=== PATIENT | male | born 1965 | race Two or more races ===

== ENCOUNTER 2019-07-23 12:04 | Emergency (ER) | payer SELFPAY | END 2019-07-23 14:00 | disposition home or self-care (01) | LOC: JER 12:04 ==

== ENCOUNTER 2019-11-12 15:09 | Emergency (ER) | payer OTHER ==
[2019-11-12 15:26] VITALS: TEMP 98.1; BMI 25.8
[2019-11-12] MEDS ORDERED: LIDOCAINE 5% TOPICAL PATCH TP ONE (15:59)
[2019-11-12] MEDS ORDERED: IBUPROFEN 400 MG TABLET (FP) PO ONE ×2 (15:59→16:16)
--- NOTE | 2019-11-12 16:05 | PDOC ---
History of Present Illness - General Chief Complaint: Pain Stated Complaint: LEG PAIN Time Seen by Provider: 11/12/19 15:43 History Source: Patient Exam Limitations: No Limitations - History of Present Illness Initial Comments: Femi Hernandez is a 50 yo M w a hx of ETOH abuse, HTN, HLD, and chronic LLE pain who presents to the [facility] with left leg pain. He was seen in this er for the same pain 2 days prior. The patient states his leg pain is between his knee and his ankle. He rates the pain as 6/10. he describes the pain as a sharp sensation but sometimes says it feels like it sewell. The pain has been present for years but it occasionally acts up and the pain becomes intolerable. When he was seen in this ER 2 days prior we called up [facility] and they said that he has been seen in their ER for chronic left leg pain on multiple occasions. The pain is not associated with any fevers, chills, nausea, vomiting, diarrhea or constipation. PCP: None PSH: Left leg surgery Allergies: NKA, NKDA Social Hx: Lives in a long-term. ETOH abuse, denies smoking, or other illicit drug usage Past History - Past Medical History Allergies/Adverse Reactions: Allergies Allergy/AdvReac Type Severity Reaction Status Date / Time No Known Allergies Allergy Verified 11/12/19 15:19 Home Medications: Ambulatory Orders NK [No Known Home Medication] 11/10/19 COPD: No - Immunization History Immunization Up to Date: Yes - Psycho Social/Smoking Cessation Hx Smoking History: Current some day smoker Have you smoked in the past 12 months: No Number of Cigarettes Smoked Daily: 1 Information on smoking cessation initiated: No Hx Alcohol Use: Yes Drug/Substance Use Hx: No Review of Systems - Review of Systems Able to Perform ROS?: Yes Comments:: CONSTITUTIONAL: Absent: fever, no chills, no fatigue EYES: Absent: visual changes ENT: Absent: ear pain, no sore throat CARDIOVASCULAR: Absent: chest pain, no palpitations RESPIRATORY: Absent: cough, no SOB GI: Absent: abdominal pain, no nausea, no vomiting, no constipation, no diarrhea GENITOURINARY: Absent: dysuria, no frequency, no hematuria MUSKULOSKELETAL: Present: Arthralgia Absent: back pain, no myalgia SKIN: Absent: rash NEURO: Absent: headache *Physical Exam - Vital Signs Last Vital Signs Temp Pulse Resp BP Pulse Ox 98.1 F 87 18 127/69 100 11/12/19 15:10 11/12/19 15:10 11/12/19 15:10 11/12/19 15:10 11/12/19 15:10 - Physical Exam GENERAL: Sluggish appearing. No apparent distress. HEENT: Normocephalic, atraumatic. PERRL, EOM intact. CARDIOVASCULAR: Normal S1, S2. Regular rate and rhythm. PULMONARY: No evidence of respiratory distress. Lungs clear to auscultation bilaterally. No wheezing, rales or rhonchi. ABDOMEN: Soft, non-distended, non-tender. EXTREMITIES: Normal ROM in all four extremities. No gross deformities. SKIN: Left leg surgical scar. No erythema, point tenderness, no calf pain. Warm, dry. NEUROLOGICAL: No focal neurological deficits. ED Treatment Course - RADIOLOGY Radiology Studies Ordered: Category Date Time Status FEMUR-LEFT [RAD] Stat Radiology 11/12/19 16:00 Ordered HIP & PELVIS-LEFT [RAD] Stat Radiology 11/12/19 15:59 Ordered KNEE 3 POS-LEFT [RAD] Stat Radiology 11/12/19 16:01 Ordered SPINE-LUMBAR SACRAL [RAD] Stat Radiology 11/12/19 16:00 Ordered Medical Decision Making - Medical Decision Making Femi Hernandez is a 50 yo M w a hx of ETOH abuse, HTN, HLD, and chronic LLE pain who presents to the [facility] with left leg pain. He was seen in this er for the same pain 2 days prior. The patient states his leg pain is between his knee and his ankle. He rates the pain as 6/10. he describes the pain as a sharp sensation but sometimes says it feels like it sewell. The pain has been present for years but it occasionally acts up and the pain becomes intolerable. When he was seen in this ER 2 days prior we called up [facility] and they said that he has been seen in their ER for chronic left leg pain on multiple occasions. Vital Signs Temp Pulse Resp BP Pulse Ox 98.1 F 87 18 127/69 100 11/12/19 15:10 11/12/19 15:10 11/12/19 15:10 11/12/19 15:10 11/12/19 15:10 DDx IBNLT: fracture, chronic leg pain, neuropathy, herniated disc Plan: xr's, analgesia, re-assess. XR: No acute fractures Re-assessment: Patient feels mildly better after NSAID Disposition: Home with Pain management and PCP fu Discharge - Discharge Information Problems reviewed: Yes Clinical Impression/Diagnosis: Left leg pain Condition: Improved Disposition: HOME - Admission No - Follow up/Referral Referrals: Walter Stone MD [Staff Physician] - [facility] [place] [Provider Group] - Patient Discharge Instructions Patient Printed Discharge Instructions: Managing Chronic Low Back Pain, DI for Leg Pain Additional Instructions: You came into the ER with leg pain. We gave you some motrin which made you feel slightly better. Please continue to take ibuprofen/motrin/advil as needed for pain control. Please follow up with the pain management doctor we are referring you to. Come back to the ER if your pain worsens or you have any other new or worsening concerns. Thank you for coming to the [facility] ER. We hope you feel better soon! Print Language: OMANI - Post Discharge Activity
[2019-11-12] MEDS ORDERED: LIDOCAINE 5% TOPICAL PATCH ONE (16:16)
--- NOTE | 2019-11-12 16:18 | PDOC ---
Attending Attestation - Resident Resident Name: Chris Wilkins - ED Attending Attestation I have performed the following: I have examined & evaluated the patient, The case was reviewed & discussed with the resident, I agree w/resident's findings & plan - HPI HPI: 11/12/19 16:17 Femi Hernandez is a 50 yo M w a hx of ETOH abuse, HTN, HLD, and chronic LLE pain who presents to the [facility] with left leg pain. He was seen in this er for the same pain 2 days prior. The patient states his leg pain is between his knee and his ankle. He rates the pain as 6/10. he describes the pain as a sharp sensation but sometimes says it feels like it sewell. The pain has been present for years but it occasionally acts up and the pain becomes intolerable. When he was seen in this ER 2 days prior we called up [facility] and they said that he has been seen in their ER for chronic left leg pain on multiple occassions. - Physicial Exam PE: 11/13/19 09:30 Agree with the resident's HPI and PE as documented in the electronic medical record. NAD, +disheveled and malodorous, sleeping. no respiratory distress, 2+ pulses throughout, abdomen soft, nontender. MALLOY x4, no focal neuro deficits. SILT in all extrem. wiggles toes, 5/5 plantar and dorsiflexion. No peripheral edema. normal color for ethnicity, WWP. no skin discoloration, no deformities. soft compartments. no joint laxities. FROM , pelvis stable. +diffuse tenderness in LLE, nonfocal.. no calf tenderness. no swelling. old surgical scars in LLE - Medical Decision Making 11/12/19 16:17 Vital Signs Temp Pulse Resp BP Pulse Ox 98.1 F 87 18 127/69 100 11/12/19 15:10 11/12/19 15:10 11/12/19 15:10 11/12/19 15:10 11/12/19 15:10 Vitals notable for normal temperature, hemodynamically appropriate, breathing comfortably. Patient presents with chronic leg pain and has been seen at [facility] previously, last ED visit was 2 days ago for similar complaint. Has also prior alcohol intoxication currently sober No evidence of DVT from prior imaging on 11/10. tib-fib x-rays were also negative for periosteal elevation or erosion, no fractures, no evidence of osteomyelitis or gas/air discharge stable condition, chronic LLE pain without clear source, no infection or bony abnormalities or known recent trauma, ambulatory analgesia given. outpatient followup, has had prior procedures done at [facility]. gait stable, neuro intact, return precautions, followups provided. 11/12/19 17:07 11/13/19 09:31
[2019-11-12 17:56] VITALS: BP 109/63; PULSE 75
[2019-11-12] MEDS ORDERED: LIDOCAINE PATCH REMOVAL MC SCH (22:00)
== END 2019-11-12 17:57 | disposition home or self-care (01) ==
LOC: JER 15:09
DX: M79.605 Pain in left leg (principal); F17.210 Nicotine dependence, cigarettes, uncomplicated; F10.10 Alcohol abuse, uncomplicated; I10 Essential (primary) hypertension; E78.5 Hyperlipidemia, unspecified; G89.29 Other chronic pain
CPT/HCPCS: 72100-TC-FY; 73523-TC-FY; 73552-TC-LT-FY; 73562-TC-LT-FY; 99282-25